=== PATIENT | female | born 2000 | race Caucasian/White ===

== ENCOUNTER 2022-11-25 23:56 | Emergency (ER) | payer OTHER ==
[2022-11-26 00:03] VITALS: BP 110/73; PULSE 87; RESP 18; TEMP 98.4; BMI 18.6
[2022-11-26] MEDS ORDERED: ACETAMINOPHEN 325 MG TABLET (FP) PO ONE (00:40)
[2022-11-26] MEDS ORDERED: ACETAMINOPHEN 325 MG TABLET (FP) ONE (00:44)
== END 2022-11-26 03:09 | disposition home or self-care (01) ==
LOC: JER 23:56
DX: S99.912A Unspecified injury of left ankle, initial encounter (principal); W10.8XXA Fall (on) (from) other stairs and steps, initial encounter
CPT/HCPCS: 73610-TC-LT-FY; 73630-TC-LT; 99283-25